=== PATIENT | female | born 1995 | race Caucasian/White ===

== ENCOUNTER 2018-08-11 08:37 | Outpatient (CLI) | payer BC, OTHER ==
--- NOTE | 2018-08-11 09:46 | ULT ---
OBSTETRIC SONOGRAM: HISTORY: Second trimester gestation. evaluation. FINDINGS: Multiple transabdominal sonographic views of the gravid uterus. Single intrauterine gestation in niurka ch presentation. Cervix is closed and 5.2 cm. Amniotic fluid is within normal limits. Grade 0 placenta is posterior. spine and kidneys are intact as visualized. No gross intracranial abnorm alities evident. Four-chamber heart motion at 158 bpm. Three-vessel cord shows a normal insertion. Measurements are as follows: Biparietal diameter 21 weeks 3 days. Head circumference 22 weeks 2 days. Abdominal circumference 21 weeks 5 days. Femur length 23 weeks 3 days. [place] 47th percentile. Estimated date of delivery based on today's sonogram is 12/13/2018. IMPRESSION: Single viable intrauterine gestation. Estimated gestational age based on today's sonogram is 22 weeks and 2 days. Transcribed Date/Time: 08/11/2018 10:45 AM
== END 2018-08-11 08:38 | disposition home or self-care (01) ==
LOC: BICULT 08:37
PROVIDERS: ATTEND Family Medicine
DX: Z34.82 Encounter for supervision of other normal pregnancy, second trimester (principal); Z3A.22 22 weeks gestation of pregnancy
CPT/HCPCS: 76805

== ENCOUNTER 2018-12-07 19:15 | Inpatient (IN) | payer BC, OTHER ==
[~2018-12-07 19:15] MED LIST: Bupivacaine/Epinephrine 0.25% 30 ML VIAL ONE
[2018-12-07 21:04] VITALS: BMI 28.2
[2018-12-07] MEDS ORDERED: Lidocaine 1% (PF) 30 ML VIAL SC PRN (21:12)
[2018-12-07] MEDS ORDERED: hydrALAZINE 20 MG/ML VIAL SLOW IVP PRN (21:12)
[2018-12-07] MEDS ORDERED: Carboprost 250 MCG/ML AMP IM PRN (21:12)
[2018-12-07] MEDS ORDERED: Butorphanol Tartrate 1 MG/ML VIAL SLOW IVP PRN (21:12)
[2018-12-07] MEDS ORDERED: Ondansetron PF 4 MG/2 ML Vial IVP PRN (21:12)
[2018-12-07] MEDS ORDERED: Diphenoxylate HCl/Atropine Tablet PO PRN (21:12)
[2018-12-07] MEDS ORDERED: NS / Oxytocin 40 units/1000ml 1,000 ML IV PRN (21:12)
[2018-12-07] MEDS ORDERED: Misoprostol 200 MCG TAB PR PRN (21:12)
[2018-12-07] MEDS ORDERED: Methylergonovine 0.2 MG/ML VIAL IM PRN (21:12)
[2018-12-07] MEDS ORDERED: Promethazine HCl 25 MG/ML VIAL IM PRN (21:12)
[2018-12-07] MEDS ORDERED: HYDROcodone/Acetaminophen 5/325 mg Tablet PO PRN (21:12)
[2018-12-07] MEDS ORDERED: Ibuprofen 800 MG TAB PO PRN (21:12)
[2018-12-07] MEDS ORDERED: NS w/ Oxytocin 10 units 500 ML IV SCH ×2 (21:15)
[2018-12-07 21:42] LABS: Hemoglobin 8.5 g/dL (12.0-16.0); Mean Corpuscular HGB CONC 33.2 g/dL (32.0-36.0); Mean Corpuscular Hemoglobin 24.3 pg (27.0-31.0); Mean Corpuscular Volume 73.1 fL (78.0-98.0); Mean Platelet Volume 8.6 fL (7.4-10.4); Platelet Count 311 thou/uL (130-400); RBC Distribution Width 14.5 % (11.5-14.5); Red Blood Cell (RBC) Count 3.51 mill/uL (4.20-5.40); White Blood Cell (WBC) Count 10.3 thou/uL (4.8-10.8)
[2018-12-07] MEDS: Misoprostol 100 MCG TAB PO SCH (21:46)
[2018-12-07] MEDS: Lactated Ringer's 1,000 ML IV SCH (21:46)
[2018-12-07 22:17] LABS: Syphilis Antibody Nonreactive (Nonreactive); Syphilis Antibody Index 0.05 S/CO (<1.00 Non-Reactive)
[2018-12-07 23:49] LABS: Hep B Surf Ag Non-Reactive S/CO (NonReactive)
[2018-12-08] MEDS: Lactated Ringer's 1,000 ML IV SCH ×2 (05:15→12:08)
[2018-12-08] MEDS ORDERED: Fentanyl 4 mcg/Bup 0.1% Cadd 100 ML ONE (11:31)
[2018-12-08] MEDS ORDERED: diphenhydrAMINE 50 MG/ML VIAL IVP PRN (12:06)
[2018-12-08] MEDS ORDERED: Naloxone HCl 0.4 mg/ml Vial IVP PRN ×2 (12:06)
[2018-12-08] MEDS ORDERED: ePHEDrine/0.9% NaCl/PF SYRINGE 50 mg/10 ml SLOW IVP PRN (12:06)
[2018-12-08] MEDS ORDERED: Lactated Ringer's 500 ML IV PRN (12:06)
[2018-12-08] MEDS ORDERED: Promethazine HCl 25 MG/ML VIAL IM PRN (12:06)
[2018-12-08] MEDS ORDERED: Ondansetron PF 4 MG/2 ML Vial IVP PRN ×2 (12:06→15:05)
[2018-12-08] MEDS ORDERED: Communication Order-Pharmacy FS SCH (12:15)
[2018-12-08] MEDS ORDERED: Fentanyl 4 mcg/Bupivacaine 0.1% Cassette 100 ML EPIDURAL SCH (12:15)
[2018-12-08] MEDS ORDERED: Methylergonovine 0.2 MG/ML VIAL ONE (13:30)
[2018-12-08] MEDS ORDERED: Misoprostol 200 MCG TAB ONE (13:32)
[2018-12-08] MEDS: Acetaminophen 325 MG TAB PO PRN (15:04)
[2018-12-08] MEDS ORDERED: Preparation H Ointment 28 GM TUBE PR PRN (15:05)
[2018-12-08] MEDS ORDERED: Lanolin Ointment 7 GM TUBE TOP PRN (15:05)
[2018-12-08] MEDS ORDERED: Adacel (T-DAP) 0.5 ML SYRINGE IM ONE (15:05)
[2018-12-08] MEDS ORDERED: HYDROcodone/Acetaminophen 5/325 mg Tablet PO PRN ×2 (15:05)
[2018-12-08] MEDS ORDERED: NS / Oxytocin 40 units/1000ml 1,000 ML IV SCH (15:05)
[2018-12-08] MEDS ORDERED: hydrALAZINE 20 MG/ML VIAL SLOW IVP PRN (15:05)
[2018-12-08] MEDS ORDERED: Milk Of Magnesia 30 ML UDCUP PO PRN (15:05)
[2018-12-08] MEDS ORDERED: Bisacodyl 10 MG SUPP PR PRN (15:05)
[2018-12-08] MEDS ORDERED: diphenhydrAMINE 25 MG CAP PO PRN (15:05)
[2018-12-08] MEDS ORDERED: Benzocaine-Menthol 82.5 ML CAN TOP PRN (15:05)
[2018-12-08] MEDS: Misoprostol 100 MCG TAB PO SCH (16:31)
[2018-12-08] MEDS: Ferrous Sulfate 325 MG TAB PO SCH (16:39)
[2018-12-08] MEDS ORDERED: Pseudoephedrine HCl 30 MG TAB PO PRN (18:05)
[2018-12-08] MEDS ORDERED: FLU VACC QS2019-20(6MOS UP)/PF 60 MCG/0.5 ML SYRINGE IM ONE (21:00)
[2018-12-08] MEDS ORDERED: Misoprostol 100 MCG TAB PO SCH (21:00)
[2018-12-08] MEDS: Docusate Calcium (SURFAK) 240 MG CAP PO SCH (21:30)
[2018-12-08] MEDS: guaiFENesin/DM ER PO SCH (21:30)
[2018-12-08] MEDS: Ibuprofen 800 MG TAB PO SCH (21:30)
[2018-12-09] MEDS: Acetaminophen 325 MG TAB PO PRN (02:09)
[2018-12-09 06:12] LABS: Hemoglobin 8.5 g/dL (12.0-16.0); Mean Corpuscular HGB CONC 32.4 g/dL (32.0-36.0); Mean Corpuscular Hemoglobin 24.3 pg (27.0-31.0); Mean Platelet Volume 8.8 fL (7.4-10.4); Platelet Count 293 thou/uL (130-400); RBC Distribution Width 14.5 % (11.5-14.5); Red Blood Cell (RBC) Count 3.49 mill/uL (4.20-5.40); White Blood Cell (WBC) Count 11.5 thou/uL (4.8-10.8)
[2018-12-09] MEDS: Ibuprofen 800 MG TAB PO SCH ×2 (06:19→13:51)
[2018-12-09] MEDS: guaiFENesin/DM ER PO SCH (08:05)
[2018-12-09] MEDS: Docusate Calcium (SURFAK) 240 MG CAP PO SCH (08:06)
[2018-12-09] MEDS: Ferrous Sulfate 325 MG TAB PO SCH ×2 (08:07→16:48)
[2018-12-09] MEDS ORDERED: Prenatal Vitamin 1 TAB PO SCH (09:00)
[2018-12-09 12:08] VITALS: BP 117/72; TEMP 97.1
== END 2018-12-09 18:05 | disposition home or self-care (01) | DRG 807 ==
LOC: L&D 20:20 → 3SW 12-08 15:52
PROVIDERS: ADMIT Family Medicine; ATTEND Family Medicine
PROC: 10907ZC Drainage of Amniotic Fluid, Therapeutic from Products of Conception, Via Natural or Artificial Opening (ICD-10-PCS; principal; 2018-12-07)
PROC: 10E0XZZ Delivery of Products of Conception, External Approach (ICD-10-PCS; 2018-12-07)
DX: O80 Encounter for full-term uncomplicated delivery (principal); Z37.0 Single live birth; O62.2 Other uterine inertia; Z3A.39 39 weeks gestation of pregnancy
CPT/HCPCS: 36415; 85027; 86780; 86850; 86900; 86901; 87340; J0595; J2210; J2405; J2590